=== PATIENT | female | born 1995 | race Two or more races ===

== ENCOUNTER 2019-09-11 21:51 | Emergency (ER) | payer SELFPAY ==
[~2019-09-11] VITALS: Ht 149.9 cm; Wt 90.9 kg
[2019-09-11 23:08] LABS: INFLUENZA TYPE A NEGATIVE FOR TYPE A (NEGATIVE); INFLUENZA TYPE B NEGATIVE FOR TYPE B (NEGATIVE)
[2019-09-12] MEDS ORDERED: ALBUTEROL SULFATE HFA 90 MCG/PUFF 8 GM INHALER IH ONE (00:30)
[2019-09-12 01:20] VITALS: BP 135/68
== END 2019-09-12 01:31 | disposition home or self-care (01) ==
LOC: EMS 21:54
DX: O99.511 Diseases of the respiratory system complicating pregnancy, first trimester (principal); J40 Bronchitis, not specified as acute or chronic; Z3A.11 11 weeks gestation of pregnancy
CPT/HCPCS: 87804; 93970; 94640; J3535